=== PATIENT | male | born 1950 | race Caucasian/White ===

== ENCOUNTER 2022-02-03 09:14 | Outpatient (CLI) | payer MEDICARE ==
[~2022-02-03 09:14] MED LIST: BARIUM SULFATE 340 ML SUSP.RECON***PROCEDURE AREA ONLY**DONT ENTER PO ONE; IBUP-1984 PO
== END 2022-02-03 23:59 | disposition home or self-care (01) ==
LOC: RAD 09:14
PROVIDERS: ATTEND Internal Medicine Gastroenterology
DX: R13.10 Dysphagia, unspecified (principal)
CPT/HCPCS: 74220